=== PATIENT | female | born 1940 | race Caucasian/White ===

== ENCOUNTER → 2022-02-23 10:24 | Outpatient (CLI) | payer MEDICARE, SELFPAY ==
--- NOTE | ~2022-02-23 | XR_ITS ---
XR chest 2V 02/23/2022 10:46 Indication: Acute lower respiratory infection Procedure: 2 view chest Comparison: Comparison to multiple prior studies sequentially, with oldest reviewed study dated 10/12. Findings: Heart size normal. Stable chronic bibasilar interstitial infiltrates, likely atelectasis/fi brosis. No acute focal pneumonia, pleural effusion, edema or pneumothorax. Impression: 1: No acute cardiopulmonary disease. Reviewed, dictated and finalized at location B. Impression: 1: No acute cardiopulmonary disease.
== END ==
PROVIDERS: PCP Family Medicine; Visit Provider Family Medicine
DX: J22 Unspecified acute lower respiratory infection (principal)
CPT/HCPCS: 71046

== ENCOUNTER → 2023-04-27 09:02 | Outpatient (CLI) | payer MEDICARE, SELFPAY ==
--- NOTE | ~2023-04-27 | XR_ITS ---
Clinical Indication: Cough PA and lateral views of the chest: Comparison: 02/23/2022 Findings: There is chronic mild blunting of costophrenic angles, with probable chronic bibasilar to s erve prominence.. Cardiomediastinal silhouette is within normal limits. Bones and soft tissues are u nremarkable. Impression: No change from prior exam. Probable COPD and/or other chronic bibasilar interstitial disease. No defi nite acute pulmonary pathology. Reviewed, dictated and finalized at location M. 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 Probable COPD and/or other chronic bibasilar interst itial disease. No definite acute pulmonary pathology.
== END ==
PROVIDERS: PCP Family Medicine; Visit Provider Family Medicine
DX: R05.9 Cough, unspecified (principal)
CPT/HCPCS: 71046

== ENCOUNTER 2025-04-02 08:59 | Outpatient (CLI) | payer OTHER, SELFPAY ==
--- NOTE | 2025-04-01 19:49 | PHAR ---
HOME MED VERIFIED BRAND NAME DILANTIN 100MG TAKE 1 CAPSULE TID
--- NOTE | 2025-04-26 12:12 | WPDPFTINT ---
PFT Procedure Performed PFT Procedure Performed Spirometry with Pre/Post Bronchodilator Plethysmography (Lung Vol) Diffusing Cap (DLCO) Flow Vol Loop PFT Interpretation DOS: 04/02/2025 REQUESTING: Didi Baeza APRN REASON FOR TESTING: COPD PULMONARY FUNCTION TESTS Results are reliable and reproducible. Repeatability of spirometry FEV1 maneuver pre and post bronchodilator is Grade A. Bernardo: GLI 2012 reference equations were used. Spirometry: The pre-bronchodilator FEV1 is 1.44L, 75%. The pre-bronchodilator FVC is 2.55L, 100%. The FEV1/FVC ratio is 56%, decreased. After bronchodilator, the FEV1 is 1.58 L, 82%. After bronchodilator, the FVC is 2.75L, 108%. The FEV1/FVC ratio is 57%. Lung volumes: The total lung capacity is 5.75, 111%. The residual volume is 2.96 L, 119%. The RV/TLC is 52%. The functional reserved capacity is 3.83 L, 127%. Airway resistance is increased. Diffusion: DLCO is 8.7, 45%, moderately decreased. The DLCO/VA is 2.87, 71. 5, normal. Flow volume loop: The flow volume loop shows coving of the expiratory limb.. IMPRESSION: This study shows a mild obstructive ventilatory impairment with non-statistically significant response to bronchodilator, normal lung volumes, moderate diffusion impairment which corrects for alveolar volume. Lack of response to bronchodilator should not preclude use if clinically indicated. No prior studies to compare. Aidee Dhaliwal MD
== END 2025-04-02 09:00 | disposition home or self-care (01) ==
PROVIDERS: PCP Nurse Practitioner Family; Visit Provider Nurse Practitioner Family
DX: J44.9 Chronic obstructive pulmonary disease, unspecified (principal)
CPT/HCPCS: 94060; 94726; 94729